=== PATIENT | male | born 1995 | race Asian ===

== ENCOUNTER 2018-10-17 10:20 | Outpatient (CLI) | payer OTHER ==
--- NOTE | 2018-10-17 18:33 | MRI Report ---
Reason: PAIN IN RIGHT KNEE Procedure Date: 10/17/2018 Accession Number: [id number] / [id number] Procedure: MRI - Knee RT W/O CPT Code: FULL RESULT: EXAM: RIGHT KNEE MRI WITHOUT CONTRAST EXAM DATE: 10/17/2018 10:58 AM. CLINICAL HISTORY: PAIN IN RIGHT KNEE. COMPARISON: None. TECHNIQUE: Multiplanar, multisequence T1-weighted and fluid-sensitive sequences of the knee without contrast. Other: None. FINDINGS: Bones: There is a small amount of edema without fracture line seen in the anterior tibial tubercle. Distal femur, patella appear unremarkable.. Osteophytosis/enthesophytes at the attachment of the distal patellar tendon onto the anterior tibial tubercle. Articular Cartilage: Unremarkable. Medial Meniscus: The medial meniscus is intact. Lateral Meniscus: The lateral meniscus is intact. Cruciate Ligaments: The anterior and posterior cruciate ligaments are intact. Collateral Ligaments: The medial collateral and lateral collateral ligamentous structures are intact. Tendons: The quadriceps, patellar, semimembranosus, and popliteus tendons are unremarkable. Musculature: No edema or fatty atrophy. Other: No effusion. No popliteal cyst. No loose bodies. The medial and lateral retinacula are intact. Focal fluid collection is seen at the inferior aspect of Hoffa's fat pad. Series 501 image 21. IMPRESSION: 1. Focal area of marrow edema adjacent to either an osteophyte or enthesophyte at the anterior tibial tubercle, small amount of abnormal signal also seen in the distal patellar tendon. Some fluid is seen in the anterior inferior aspect of Hoffa's fat pad. This may reflect repetitive injury or injury from chronic kneeling. 2. No other worrisome imaging features. [facility] MUSCULOSKELET[facility] RADIOLOGY SECTION
== END 2018-10-17 10:21 | disposition home or self-care (01) ==
LOC: DI 10:20
PROVIDERS: ATTEND General Practice
DX: M25.561 Pain in right knee (principal); M25.461 Effusion, right knee